=== PATIENT | male | born 1970 | race Caucasian/White ===

== ENCOUNTER 2021-02-24 04:52 | Emergency (ER) | payer BC, OTHER ==
[2021-02-24] MEDS ORDERED: methylPREDNISolone NA SUCC 125 MG/2 ML VIAL IVPB ONE (04:57)
[2021-02-24] MEDS ORDERED: FAMOTIDINE 20 MG/50 ML IVPB 20 MG/50 ML MG IVPB ONE ×2 (04:57→05:06)
[2021-02-24] MEDS ORDERED: methylPREDNISolone NA SUCC 125 MG/2 ML VIAL ONE (05:06)
[2021-02-24] MEDS ORDERED: EPINEPHrine 1:1,000 0.3 MG/0.3 ML SYR IM ONE (05:10)
[2021-02-24] MEDS ORDERED: EPINEPHrine/PF 1 MG/1 ML (1:1,000) AMPULE ONE (05:14)
[2021-02-24] MEDS ORDERED: EPINEPHrine/PF 1 MG/1 ML (1:1,000) AMPULE IM ONE (05:14)
[2021-02-24] MEDS ORDERED: SODIUM CHLORIDE 1,000 ML IV STA (05:21)
[2021-02-24 05:27] VITALS: TEMP 98.1; BMI 38.0
[2021-02-24 09:08] VITALS: BP 156/85; PULSE 65
== END 2021-02-24 09:10 | disposition home or self-care (01) ==
LOC: FER 04:52
PROC: 3E023GC Introduction of Other Therapeutic Substance into Muscle, Percutaneous Approach (ICD-10-PCS; principal; 2021-02-24)
PROC: 3E033GC Introduction of Other Therapeutic Substance into Peripheral Vein, Percutaneous Approach (ICD-10-PCS; 2021-02-24)
PROC: 3E033GC Introduction of Other Therapeutic Substance into Peripheral Vein, Percutaneous Approach (ICD-10-PCS; 2021-02-24)
PROC: 3E0337Z Introduction of Electrolytic and Water Balance Substance into Peripheral Vein, Percutaneous Approach (ICD-10-PCS; 2021-02-24)
DX: T78.40XA Allergy, unspecified, initial encounter (principal)
CPT/HCPCS: 99284-25

== ENCOUNTER 2022-10-07 11:08 | Emergency (ER) | payer BC, OTHER ==
[2022-10-07 11:37] VITALS: RESP 16; TEMP 97.8; BMI 34.2
[2022-10-07] MEDS ORDERED: predniSONE 20 MG TABLET (UD) PO ONE (11:40)
[2022-10-07] MEDS ORDERED: FAMOTIDINE 20 MG TABLET PO ONE (11:40)
[2022-10-07] MEDS ORDERED: FAMOTIDINE 20 MG TABLET ONE (11:50)
[2022-10-07] MEDS ORDERED: predniSONE 20 MG TABLET (UD) ONE (11:50)
[2022-10-07 13:19] VITALS: BP 182/109; PULSE 65
== END 2022-10-07 13:38 | disposition home or self-care (01) ==
LOC: FER 11:08
DX: T78.40XA Allergy, unspecified, initial encounter (principal)
CPT/HCPCS: 99283-25